=== PATIENT | male | born 1950 | race Hispanic/Latino ===

== ENCOUNTER 2016-11-19 13:14 | Emergency (ER) | payer SELFPAY ==
[~2016-11-19] VITALS: Ht 170.2 cm; Wt 81.0 kg
[~2016-11-19 13:14] MED LIST: AMLODIPINE10 MG PO; AMOXIL400 MG/5 M PO; ASPIRIN EC81 MG PO; ASPIRIN LOW DOS81 M1 PO; ASPIRIN LOW DOS81 M2 PO; BACTRIM DS1 TAB PO; CATAPRES0.2 MG PO; CEPHALEXIN500 MG OR; CIPROFLOXACN250 MG PO; CIPROFLOXACN500 MG PO; DOXYCYCL HYC100 M4 PO; ENALAPRIL5 MG PO; GABAPENTIN300 MG PO; GLIMEPIRIDE2 MG PO; GLIPIZIDE XL5 MG PO; GLUCOPHAGE1000 MG PO; GLYBURIDE5 MG PO; LEVAQUIN750 MG PO; LISINOP/HCTZ1 TA2 PO; LISINOPRIL10 MG PO; LISINOPRIL20 MG PO; LORTAB 10 PO; LORTAB 5/3255 MG PO; LORTAB 7.5 PO; LORTAB 7.57.5 MG PO; LORTAB5 PO; METFORMIN HCL1000 MG PO; METFORMIN1000 MG PO; METFORMIN500 MG PO; METOPROLOL SUC100 MG PO; NO; SIMVASTATIN20 MG PO; TOPROL XL PO; TOPROL XL100 MG PO; ULTRAM50 M1 PO; VANCOMYCIN HCL1 GM IV; VANCOMYCIN HCL1.5GM IV
[2016-11-19 13:30] VITALS: BP 174/109
== END 2016-11-19 14:17 | disposition left against medical advice (07) | DRG 951 ==
LOC: ED 13:14 → LWOBS 14:17
DX: Z91.19 Patient's noncompliance with other medical treatment and regimen (principal)